=== PATIENT | female | born 1980 | race Caucasian/White ===

== ENCOUNTER 2017-06-20 10:34 | Day surgery (SDC) | payer OTHER ==
[2017-06-20] VITALS (13 sets, daily range): BP systolic 108–133; BP diastolic 52–76; PULSE 70–90; RESP 9–25; Ht 170.2 cm; Wt 200.0 kg
[~2017-06-20] VITALS: Ht 170.2 cm; Wt 200.0 kg
[~2017-06-20 10:34] MED LIST: ATROPINE 1 MG/10 ML SYRINGE IV PRN; DIPHENHYDRAMINE 50 MG INJ IV PRN; EPHEDrine SULFATE 50 MG/5 ML SYG IV PRN; FENTAnyl 50 MCG/ML VIAL IV PRN; HYDROmorphONE (0.2 MG/ML) 10ML SYG IV PRN; LABETALOL HCL 20MG INJ IV PRN; MEPERIDINE 25 MG INJ IV PRN; MIDAZOLAM 1 MG/ML 2 ML INJ IV PRN; ONDANSETRON 4 MG INJ IV PRN; OXYCODONE/ACETAMINOPHEN (5/325) TAB PO PRN; hydrALAzine 20 MG INJ IV PRN; morphine (1 MG/ML) 10ML SYRINGE IV PRN
[2017-06-20] MEDS ORDERED: DEXAMETHASONE 4 MG/ML 1 ML INJ ONE (10:57)
[2017-06-20] MEDS ORDERED: GLYCOPYRROLATE 0.4 MG INJ ONE (10:57)
[2017-06-20] MEDS ORDERED: PROPOFOL 20 ML ONE (10:57)
[2017-06-20] MEDS ORDERED: NEOSTIGMINE 3 MG/3 ML SYRINGE ONE (10:57)
[2017-06-20] MEDS ORDERED: LIDOCAINE 2% (SDV) 5 ML INJ ONE (10:57)
[2017-06-20] MEDS ORDERED: ROCURONIUM 50 MG INJ ONE (10:57)
[2017-06-20] MEDS ORDERED: MIDAZOLAM 1 MG/ML 2 ML INJ ONE (10:57)
[2017-06-20] MEDS ORDERED: FENTAnyl 50 MCG/ML VIAL ONE (10:57)
[2017-06-20] MEDS ORDERED: LIDOCAINE 2%/EPI 30 ML INJ ONE (10:58)
[2017-06-20] MEDS ORDERED: ONDANSETRON 4 MG INJ ONE (10:58)
[2017-06-20] MEDS ORDERED: ROPIVACAINE 0.5 % 30 ML VIAL ONE (10:58)
[2017-06-20] MEDS ORDERED: SUGAMMADEX SODIUM 200 MG/2 ML VIAL IV ONE (10:59)
--- NOTE | 2017-06-20 11:39 | HPN ---
Date/Time of Note Date/Time of Note DATE: 06/20/17 TIME: 11:39 Interval H&P Admission Note Pt. seen H&P reviewed: No system changes ANTHONY GARG MD Jun 20, 2017 11:39
[2017-06-20] MEDS ORDERED: INFLUENZA VIRUS VACCINE 0.5 ML SYG IM* ONE (13:30)
[2017-06-20] MEDS ORDERED: THROMBIN 5000 UNIT VIAL ONE (15:01)
[2017-06-20] MEDS ORDERED: SODIUM CL BACTERIOSTATIC 30 ML INJ ONE (15:01)
[2017-06-20] MEDS ORDERED: CA CHLORIDE 10% 10 ML SYRINGE ONE (15:01)
[2017-06-20] MEDS ORDERED: HEPARIN 1000 UNITS/ML 10 ML INJ ONE (15:01)
[2017-06-20] MEDS ORDERED: POLYMYXIN/BACITRACIN 1L IRRIG ONE (15:32)
[2017-06-20] MEDS ORDERED: morphine 2 MG INJ IV PRN (17:00)
--- NOTE | 2017-06-20 17:23 | OPR ---
Date/Time of Note Date/Time of Note DATE: 06/20/17 TIME: 17:14 Operative Report Procedure Date: Jun 20, 2017 Preoperative Diagnosis Right ankle acute fracture of osteochondral lesion of the lateral talar dome Postoperative Diagnosis Right ankle acute fracture of osteochondral lesion of the lateral talar dome Operation/Procedure Performed Right ankle arthroscopy with removal of loose osteochondral body Right ankle arthroscopy with extensive debridement Right ankle arthroscopy with microfracture of the lateral talar dome osteochondral lesion (13 x 3 x 2 mm) Application of Platelet Rich Plasma to the lateral talar dome Application of short leg splint Surgeon Anthony Garg MD Social Studies Teacher Carlos Garg MD Second Social Studies Teacher: PANKAJ GARSIA MD Anesthesia Type: general, other (popliteal, adductor block) Anesthesiologist: THI ALANIZ MD Tourniquet Time: none Estimated Blood Loss: minimal Transfusion none Specimen none Grafts/Implants none Complications none Pt Condition Post Procedure: stable Disposition: PACU Indications Patient is a 37-year-old female who sustained a right ankle injury while at a concert on 05/28/2017. At the time of the injury she sustained an acute fracture of the osteochondral area of the lateral talar dome. Given the displacement and loose quality of the fracture fragment patient was given for ankle arthroscopy with possible fixation versus removal and microfracture. Risk Note: Patient was explained the risks and benefits of surgery and the patient's t[place] language including not limited to infection, bleeding, injury to blood vessels, nerves, ligaments or tendons. Risks of anesthesia, deep vein thrombosis and need for reduce future surgery. Patient acknowledged these risk by signing the surgical consent form. Procedure Description The patient had the correct operative site marked in the preoperative holding area and confirmed with both patient and patient's consent. The patient was brought back in the operative theater, placed supine on the operating table and given regional block anesthesia. The patient was then given 2 g of Ancef preoperatively. Tourniquet placed on the operative extremity thigh non-sterilely. Patient was then given preoperative antibiotics. The thigh was secured onto the thigh isaacs, flexed and all areas were carefully padded. The superficial peroneal nerve branch was marked out. The ankle was then prepped and draped in normal sterile fashion. A timeout was taken and all parties in the room agreed it was the correct patient, correct extremity and correct procedure. A soft tissue distraction strap was applied across the ankle and a soft tissue dissection was then placed across the ankle at approximately 30 pounds of force. Attention was then turned to the ankle joint and using a typical anterior medial , anterolateral and posterior lateral portal with care to avoid injury to the neurovascular structures. A 21 point ankle exam was completed revealing significant anterior lateral synovitis with lateral and medial gutter synovitis and scar tissue formation. There was a hemorrhagic nodule seen in the lateral gutter as well as evidence of anterior tibial osteophyte overhang. The significant amount of scar tissue was thoroughly debrided in the ankle. The distal tibial anterior overhang was excised and smoothed down with a shaver. A osteochondral fracture was found along the lateral talar dome measuring approximately 13 x 3 x 2 mm in depth. The fracture was made up almost entirely of cartilage with very few bony fragments attached. The OCD lesion was found to be loose and unlikely to be stable with fixation and therefore it was decided that the patient would benefit best of the osteochondral fracture fragment and microfracture of the lesion. The lesion thoroughly debrided, as well as the cystic lesion was well curetted out to remove the cystic membrane. Once the membrane was thoroughly debrided. The lesion site was microfractured and drill with a trocar tip K wire and microfracture pick. All remainder synovitis and hemorrhagic tissue was removed. The ankle wounds were then thoroughly irrigated with saline. All wounds were closed with 4-0 nylon in vertical mattress fashion. Platelet rich plasma spun at 2% hematocrit using the Arthrex Rogers system was then injected into the ankle. At the end of the procedure, the sponge and needle count was correct. Patient had the wounds then dressed with Xeroform, sponges, which were soaked in platelet poor plasma and then placed in a well-padded short leg splint with 5 ABDs 5 web rolls and 10 layers of 5 x 30 plaster in a posterior molded fashion as well as a stirrup fashion and the patient was placed into a short leg splint in neutral position. The patient tolerated the procedure well and was taken to the PACU in a stable condition. An power plant assistant orthopedic surgeon was needed for this case to assist with positioning of the limb, positioning the arthroscope during manipulation of the microfracture process. Without a qualified orthopedic neurosurgical physician assistant in this case the case would be significantly more complex and longer. ANTHONY GARG MD Jun 20, 2017 17:23
== END 2017-06-20 18:30 | disposition home or self-care (01) ==
LOC: SDS 10:34
PROVIDERS: ATTEND Orthopaedic Surgery
DX: S82.891A Other fracture of right lower leg, initial encounter for closed fracture (principal); M93.871 Other specified osteochondropathies, right ankle and foot; X58.XXXA Exposure to other specified factors, initial encounter; Y92.89 Other specified places as the place of occurrence of the external cause; E66.9 Obesity, unspecified; Z68.44 Body mass index [BMI] 60.0-69.9, adult; Z23 Encounter for immunization; M65.871 Other synovitis and tenosynovitis, right ankle and foot
CPT/HCPCS: 29891; 29898; 84703; 90686; J1100; J2250; J2405; J2795; J3010; J1644; J2710